=== PATIENT | male | born 1975 | race American Indian/Alaskan Native ===

== ENCOUNTER 2017-09-07 12:25 | Emergency (ER) | payer SELFPAY ==
[2017-09-07 13:23] VITALS: BP 130/82
--- NOTE | 2017-09-07 14:48 | XRay Report ---
FINAL REPORT PROCEDURE: XR HAND 3+V RT TECHNIQUE: RIGHT finger radiographs, including AP, lateral, and oblique views. HISTORY: right finger injury 1ST DIGIT COMPARISON: No prior studies are available for comparison. FINDINGS: Fracture (s) and/or Dislocation(s): None . Alignment: Normal. Joint space(s): Normal . Soft tissues: Normal . Bone mineralization: Normal . Foreign bodies: None . IMPRESSION: Normal Examination
--- NOTE | 2017-09-07 14:52 | Emergency Department Report ---
Upper Extremity - HPI Chief Complaint: Extremity Injury, Upper Stated Complaint: RIGHT INDEX FINGER INJURY Time Seen by Provider: 09/07/17 14:40 Upper Extremity: Right Index Finger Occurred When: >5 Days (1 month ago) Mechanism: Hyperextension Severity: moderate Symptoms: Yes Pain with Movement, Yes Limited Range of Movement, Yes Swelling, No Deformity, No Numbness, No Weakness, No Bruising/Ecchymosis, No Laceration or Abrasion Other History: This is a 41 y.o. male that presents with pain, swelling, and redness to right index finger for 1 month. Patient reports lifting a granite counter top at work and finger extended back. Spouse reports putting ice on it and wrapping daily. The swelling was worse when it initially happened but has improved over the past 2 weeks. The patient reports being able to hold objects but it is very painful when finger is flexed and he has limited ROM. He took ibuprofen 800 mg once, which helped a lot with symptoms. Denies numbness, tingling, and deformity. ED Review of Systems ROS: Stated complaint: RIGHT INDEX FINGER INJURY Other details as noted in HPI Constitutional: denies: chills, fever Respiratory: denies: cough, shortness of breath, wheezing Cardiovascular: denies: chest pain, palpitations Gastrointestinal: denies: abdominal pain, nausea, vomiting, diarrhea Musculoskeletal: joint swelling (over right index joints), arthralgia (right index finger). denies: back pain Skin: denies: rash, lesions, change in hair/nails, pruritus Neurological: denies: headache, weakness, numbness, paresthesias, confusion, abnormal gait, vertigo Psychiatric: denies: anxiety, depression ED Past Medical Hx - Past Medical History Previous Medical History?: No - Surgical History Past Surgical History?: Yes Additional Surgical History: right knee. splenectomy - Social History Smoking Status: Never Smoker Substance Use Type: Alcohol - Medications Home Medications: Home Medications Medication Instructions Recorded Confirmed Last Taken Type Ibuprofen 800 mg PO Q6H PRN #20 tablet 09/07/17 Unknown Rx Upper Extremity Exam - Exam General: Vital signs noted. No distress. Alert and acting appropriately. Head and Torso: No HEENT Abnormality, No Neck Tenderness, No Chest/Lungs Abnormality, No Abdominal Tenderness, No Back Tenderness Shoulder Exam: Yes Normal Range of Motion in Shoulder, No Shoulder Tenderness, No Clavicle Tenderness, No Shoulder Deformity, No AC Joint Tenderness Arm Exam: No Arm/Humerus Tenderness, No Arm Deformity Elbow: No Elbow Tenderness, No Normal Range of Motion in Elbow, No Elbow Deformity Forearm: No Forearm Tenderness, No Forearm Deformity, No Pain with Pronation, No Pain with Supination Wrist: Yes Normal ROM in Wrist, No Wrist Tenderness, No Wrist Deformity, No Snuffbox Tenderness, No Pain with Axial Thumb Compression Hand: Yes Digit Tenderness (tenderness on palpation of ), No Hand Tenderness, No Hand Deformity, No Normal ROM in Digit(s) (limited ROM, 40 degrees passive of DIP joint of right 2nd phalanx, erythematous over joint, swelling), No Digit( s) Deformity, No Tendon Dysfunction CMS Exam: Yes Normal Distal Pulses, No Broken Skin, No Normal Capillary Refill, No Normal Distal Sensation ED Course Vital Signs 09/07/17 13:19 Temperature 99.2 F Pulse Rate 79 Respiratory 18 Rate Blood Pressure 130/82 O2 Sat by Pulse 97 Oximetry ED Medical Decision Making - Radiology Data Radiology results: report reviewed XR right hand: Normal Examination - Medical Decision Making This is a 41 y.o. male that presents with pain, swelling, and redness to right index finger for 1 month. Patient examined by me and stable. No distress noted. Vitals stable. Obtained XR of right hand: Normal Examination. Review exam. Start ibuprofen 800 mg po q6h PRN for pain. F/U with ortho or PCP in 2-3 days for MRI to r/o possible tear. Discussed plan with patient and he agreed with plan to treat outpatient. Discharged home. Critical care attestation.: If time is entered above; I have spent that time in minutes in the direct care of this critically ill patient, excluding procedure time. ED Disposition Clinical Impression: Muscle strain of finger of right hand, Pain in finger of right hand Disposition: DC- TO HOME OR SELFCARE Is pt being admited?: No Does the pt Need Aspirin: No Condition: Stable Instructions: Muscle Strain (ED) Additional Instructions: Rest Use ice or heat on affected area for 20 minutes and off for 2 hours. Take pain medication as needed for pain. Follow up with Primary Care Provider or Ortho in 2-3 days. Prescriptions: Ibuprofen 800 mg PO Q6H PRN #20 tablet PRN Reason: Pain Referrals: PRIMARY CARE, [Primary Care Provider] - 3-5 Days [facility] [Outside] - 3-5 Days [facility] [Outside] - 3-[address] MD [Staff Physician] - 3-5 Days Time of Disposition: 15:36 Print Language: TAJIK
== END 2017-09-07 15:43 | disposition home or self-care (01) ==
LOC: ED 12:25
DX: S66.911A Strain of unspecified muscle, fascia and tendon at wrist and hand level, right hand, initial encounter (principal); Z90.81 Acquired absence of spleen; X50.0XXA Overexertion from strenuous movement or load, initial encounter; Y93.89 Activity, other specified; Y92.89 Other specified places as the place of occurrence of the external cause; Y99.8 Other external cause status
CPT/HCPCS: 99283

== ENCOUNTER 2019-05-20 03:36 | Emergency (ER) | payer BC ==
[2019-05-20] MEDS ORDERED: ASPIRIN 325 MG TAB PO ONE (04:47)
[2019-05-20 05:12] LABS: Basophils # (Auto) 0.1 K/mm3 (0.0-0.1); Basophils % (Auto) 1.1 % (0.0-1.8); Eosinophils # (Auto) 0.1 K/mm3 (0.0-0.4); Eosinophils % (Auto) 1.9 % (0.0-4.3); Hematocrit 40.4 % (35.5-45.6); Hemoglobin 13.5 gm/dl (11.8-15.2); Lymphocytes # (Auto) 2.8 K/mm3 (1.2-5.4); Lymphocytes % (Auto) 36.2 % (13.4-35.0); Mean Corpuscular HGB Conc 33 % (32-34); Mean Corpuscular Volume 93 fl (84-94); Monocytes # (Auto) 0.7 K/mm3 (0.0-0.8); Monocytes % (Auto) 8.8 % (0.0-7.3); Platelet Count 256 K/mm3 (140-440); Red Blood Count 4.33 M/mm3 (3.65-5.03); Red Cell Distribution Width 14.2 % (13.2-15.2)
--- NOTE | 2019-05-20 05:27 | XRay Report ---
CHEST 1 VIEW INDICATION / CLINICAL INFORMATION: Chest Pain. COMPARISON: None available. FINDINGS: SUPPORT DEVICES: None. HEART / MEDIASTINUM: No significant abnormality. LUNGS / PLEURA: No significant pulmonary or pleural abnormality. No pneumothorax. ADDITIONAL FINDINGS: No significant additional findings. IMPRESSION: 1. No acute findings. Signer Name: Rafael Nieves MD Signed: 05/20/2019 5:23 AM Workstation Name: [id number]
[2019-05-20 05:30] LABS: BUN/Creatinine Ratio 14; Blood Urea Nitrogen 14 mg/dL (9-20); Calcium 9.4 mg/dL (8.4-10.2); Hemolysis Index 4
--- NOTE | 2019-05-20 06:39 | Emergency Department Report ---
ED Chest Pain HPI - General Chief Complaint: Chest Pain Stated Complaint: LIGHTHEADED PASSED OUT Time Seen by Provider: 05/20/19 06:01 Source: patient Mode of arrival: Ambulatory Limitations: No Limitations - History of Present Illness Initial Comments: 43-year-old male presents to the emergency department with complaint of having some lightheadedness and possibly a short episode of passing out while sitting in a landry chair yesterday at about 3 PM. At this time the patient says that he feels much better and is asymptomatic. The patient admits to not eating much food or drinking much fluids on Saturday and Saturday as he says that he was sleeping a lot. While he was getting his haircut he suddenly felt lightheaded and dizzy, hot, and then thinks that he passed out for a few seconds. He was told that he passed out by the landry who then called EMS. He was seen by EMS but declined transport to the emergency department at that time. Patient has no past medical history. He denies any tobacco or illicit drug use. He came in early this morning for evaluation for this lightheadedness and syncopal episode. Patient denies any chest pain or shortness of breath. He says that there have been some episodes where he has short, sharp chest pains on and off for "some time." Severity scale (0 -10): 0 - Related Data Previous Rx's Medication Instructions Recorded Last Taken Type Ibuprofen [Ibuprofen 800] 800 mg PO Q6H PRN #20 tablet 09/07/17 Unknown Rx Allergies Allergy/AdvReac Type Severity Reaction Status Date / Time No Known Allergies Allergy Verified 09/07/17 13:19 Heart Score - HEART Score History: Slightly suspicious EKG: Normal Age: 45-65 Risk factors: No known risk factors Troponin: < normal limit HEART Score: 1 - Critical Actions Critical Actions: 0-3 pts:0.9-1.7%risk of adverse cardiac event.Candidate for discharge ED Review of Systems ROS: Stated complaint: LIGHTHEADED PASSED OUT Other details as noted in HPI Comment: All other systems reviewed and negative Constitutional: denies: chills, fever Eyes: denies: eye pain, vision change ENT: denies: ear pain, throat pain Respiratory: denies: cough, shortness of breath Cardiovascular: syncope. denies: chest pain Gastrointestinal: denies: abdominal pain, vomiting Genitourinary: denies: dysuria, discharge Musculoskeletal: denies: back pain, arthralgia Skin: denies: rash, lesions Neurological: other (lightheaded). denies: headache ED Past Medical Hx - Past Medical History Previous Medical History?: No - Surgical History Past Surgical History?: Yes Additional Surgical History: right knee. splenectomy - Social History Smoking Status: Former Smoker Substance Use Type: None - Medications Home Medications: Home Medications Medication Instructions Recorded Confirmed Last Taken Type Ibuprofen [Ibuprofen 800] 800 mg PO Q6H PRN #20 tablet 09/07/17 Unknown Rx ED Physical Exam - General Limitations: No Limitations - Other Other exam information: GENERAL: The patient is well-developed well-nourished. HENT: Normocephalic. Atraumatic. Patient has moist mucous membranes. EYES: Extraocular motions are intact. Pupils equal reactive to light bilaterally. No nystagmus. NECK: Supple. Trachea is midline. CHEST/LUNGS: Clear to auscultation. There is no respiratory distress noted. HEART/CARDIOVASCULAR: Regular. There is no tachycardia. There is no murmur. ABDOMEN: Abdomen is soft, nontender. Patient has normal bowel sounds. There is no abdominal distention. SKIN: Skin is warm and dry. NEURO: The patient is awake, alert, and oriented. The patient is cooperative. The patient has no focal neurologic deficits. Normal speech. Cranial nerves II through XII grossly intact. No pronator drift. No dysmetria. No facial asymmetry. MUSCULOSKELETAL: There is no tenderness or deformity. There is no limitation range of motion. There is no evidence of acute injury. ED Course Vital Signs 05/20/19 05/20/19 03:42 06:44 Temperature 98.2 F Pulse Rate 90 81 Respiratory 18 14 Rate Blood Pressure 143/83 Blood Pressure 143/83 120/79 [Left] O2 Sat by Pulse 100 98 Oximetry DEBBI score - Debbi Score Age > 65: (0) No Aspirin use within the Past 7 Days: (0) No 3 or more CAD Risk Factors: (0) No 2 or more Angina events in past 24 hrs: (0) No Known CAD with more than 50% Stenosis: (0) No Elevated Cardiac Markers: (0) No ST Deviation Greater than 0.5mm: (0) No DEBBI Score: 0 ED Medical Decision Making - Lab Data Result diagrams: 05/20/19 04:52 05/20/19 04:52 - EKG Data -: EKG Interpreted by Me EKG shows normal: sinus rhythm, axis, intervals, QRS complexes (LAFB), ST-T waves Rate: normal - EKG Data When compared to previous EKG there are: previous EKG unavailable Interpretation: other (Sinus, LAFB, No STEMI) - Radiology Data Radiology results: image reviewed interpreted by me: Chest x-ray does not show any acute process. There are no pleural effusions, obvious pneumonia and there is no pneumothorax. - Medical Decision Making This patient presented with the complaint of some lightheadedness and/or dizziness that may have led to a brief syncopal episode. On examination he does not have any focal, motor or sensory deficits and his cranial nerves are intact. EKG did not show any signs of ST elevation MA or significant dysrhythmia. His labs have been unremarkable including CBC, metabolic panel and troponin. Vital signs of been stable throughout his ED course. The patient is currently asymptomatic. For all these reasons the patient appears safe for discharge home at this time. He has been instructed to follow-up with his primary care physician and to return to the emergency department immediately with any worsening of his symptoms, further episodes of passing out, or with any acute distress. There was some mention of chest pain through triage but the patient denies having any chest pain around the time of his syncopal episode or since, but he does have some intermittent transient short episodes of chest pain that been going on for "some time." For this reason, the patient was given a referral for cardiology for outpatient follow-up, but once again has been instructed to return with any return of his chest pain. The patient understands and agrees to the plan. - Differential Diagnosis vasovagal, orthostatic hypotension, dehydration, dysrhythmia Critical Care Time: No Critical care attestation.: If time is entered above; I have spent that time in minutes in the direct care of this critically ill patient, excluding procedure time. ED Disposition Clinical Impression: Intermittent chest pain Syncope Qualifiers: Syncope type: unspecified Qualified Code(s): R55 - Syncope and collapse Disposition: DC-01 TO HOME OR SELFCARE Is pt being admited?: No Condition: Stable Instructions: Chest Pain (ED), Syncope (ED) Additional Instructions: Please follow-up with your primary care physician in the next few days. I'm giving you a referral for a local water pump installer, Dr. Gray, to follow up regarding your intermittent chest pains. Please return to the emergency department immediately with any return of your chest pain, any further episodes of passing out, or with any acute distress. Referrals: PRIMARY CARE, [Primary Care Provider] - 2-3 Days CELESTE NEUMANN MD [Staff Physician] - 2-3 Days Forms: Work/School Release Form(ED) Time of Disposition: 06:39
[2019-05-20 06:49] VITALS: BP 120/79
== END 2019-05-20 06:49 | disposition home or self-care (01) ==
LOC: ED 03:36
DX: R55 Syncope and collapse (principal); R07.89 Other chest pain; Z87.891 Personal history of nicotine dependence; Z90.89 Acquired absence of other organs
CPT/HCPCS: 36415; 71045; 80048; 84484; 85025; 93005; 93010

== ENCOUNTER 2020-08-17 07:40 | Emergency (ER) | payer BC, OTHER ==
--- NOTE | 2020-08-17 08:17 | Emergency Department Report ---
Blank Doc - Documentation Documentation: 44-year-old male that presents with several syncopal episodes. 1- This initial assessment/diagnostic orders/clinical plan/ treatment(s) is/are subject to change based on pt's health status, clinical progression and re- assessment by fellow clinical providers in the ED. Further treatment and workup at subsequent clinical provers discretion. Patient/guardians urged not to elope from ED as their condition may be serious if not clinically assessed and managed. 2-labs 3-EKG 4-CT head
--- NOTE | 2020-08-17 08:56 | Cat Scan Report ---
CT BRAIN: 08/17/2020 INDICATION / CLINICAL INFORMATION: Syncope. COMPARISON: None available. FINDINGS: BRAIN/INTRACRANIAL STRUCTURES: Unenhanced CT images of the brain demonstrate no evidence of acute int racranial abnormality. Ventricles and sulci are normal in size and shape. There is no CT evidence of acute large vessel territory ischemic injury, hemorrhage, or mass. There a re no abnormal extra-axial fluid collections. EXTRACRANIAL STRUCTURES: Unremarkable. IMPRESSION: No acute abnormality. All CT scans at this location are performed using dose reduction to ALARA by means of automated expos ure control. Signer Name: Luis Boykin MD Signed: 08/17/2020 8:52 AM Workstation Name: [id number]
[2020-08-17 09:01] LABS: Basophils # (Auto) 0.1 K/mm3 (0.0-0.1); Eosinophils # (Auto) 0.1 K/mm3 (0.0-0.4); Eosinophils % (Auto) 1.7 % (0.0-4.3); Hematocrit 39.7 % (35.5-45.6); Hemoglobin 13.7 gm/dl (11.8-15.2); Lymphocytes % (Auto) 34.3 % (13.4-35.0); Mean Corpuscular HGB Conc 35 % (32-34); Mean Corpuscular Volume 96 fl (84-94); Monocytes # (Auto) 0.6 K/mm3 (0.0-0.8); Platelet Count 216 K/mm3 (140-440); Red Blood Count 4.12 M/mm3 (3.65-5.03); Red Cell Distribution Width 13.9 % (13.2-15.2)
[2020-08-17 09:10] LABS: INR 1.04 (0.87-1.13)
[2020-08-17 09:11] LABS: Partial Thromboplastin Time 33.2 Sec. (24.2-36.6)
[2020-08-17 09:48] LABS: Alanine Aminotransferase 8 units/L (7-56); Albumin 4.3 g/dL (3.9-5); BUN/Creatinine Ratio 10; Blood Urea Nitrogen 10 mg/dL (9-20); Calcium 8.9 mg/dL (8.4-10.2); Hemolysis Index 0
[2020-08-17 09:52] VITALS: BP 128/84
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
--- NOTE | 2020-08-17 10:19 | XRay Report ---
CHEST 1 VIEW INDICATION / CLINICAL INFORMATION: syncope. COMPARISON: 05/20/2019 FINDINGS: SUPPORT DEVICES: None. HEART / MEDIASTINUM: No significant abnormality. LUNGS / PLEURA: No significant pulmonary or pleural abnormality. No pneumothorax. ADDITIONAL FINDINGS: Old healed left for fractures IMPRESSION: Old healed left rib fractures. No acute disease or interval change from 05/20/2019 Signer Name: Thai Chavez MD FACOswaldo Signed: 08/17/2020 10:15 AM Workstation Name: [email or web address]
--- NOTE | 2020-08-17 10:20 | XRay Report ---
LEFT SHOULDER 3 VIEWS INDICATION / CLINICAL INFORMATION: pain. COMPARISON: None available. FINDINGS: No significant skeletal abnormality Signer Name: Thai Chavez MD FACR Signed: 08/17/2020 10:15 AM Workstation Name: [id number]
== END 2020-08-17 10:59 | disposition home or self-care (01) ==
LOC: ED 07:40
DX: S40.012A Contusion of left shoulder, initial encounter (principal); R55 Syncope and collapse; Z98.890 Other specified postprocedural states; Z79.899 Other long term (current) drug therapy; V49.69XA Unspecified car occupant injured in collision with other motor vehicles in traffic accident, initial encounter; Y93.89 Activity, other specified; Y92.488 Other paved roadways as the place of occurrence of the external cause; Y99.8 Other external cause status
CPT/HCPCS: 36415; 70450; 71045; 80053; 82962; 83735; 84484; 85025; 85379; 85610; 85730; 93005

== ENCOUNTER 2020-10-01 10:57 | Emergency (ER) | payer OTHER ==
[2020-10-01 11:57] VITALS: BP 137/88
--- NOTE | 2020-10-01 12:13 | Event Note ---
ED Screening Note Date of service: 10/01/20 Time: 11:56 ED Screening Note: Patient complains of syncopal episode last night lasting around 10 minutes Denies any preceding symptoms States mild dizziness No numbness/tingling/weakness in his limbs, headache, or past medical history per patient Patient states syncopal episodes have been recurrent for many months This initial assessment/diagnostic orders/clinical plan/treatment(s) is/are subject to change based on patients health status, clinical progression and re- assessment by fellow clinical providers in the ED. Further treatment and workup at subsequent clinical providers discretion. Patient/guardian urged not to elope from the ED as their condition may be serious if not clinically assessed and managed. Initial orders include: Labs EKG CT head
[2020-10-01 13:08] LABS: Basophils # (Auto) 0.1 K/mm3 (0.0-0.1); Basophils % (Auto) 0.5 % (0.0-1.8); Eosinophils % (Auto) 0.4 % (0.0-4.3); Hematocrit 40.2 % (35.5-45.6); Hemoglobin 13.9 gm/dl (11.8-15.2); Lymphocytes # (Auto) 1.7 K/mm3 (1.2-5.4); Mean Corpuscular HGB Conc 35 % (32-34); Mean Corpuscular Volume 97 fl (84-94); Monocytes % (Auto) 8.7 % (0.0-7.3); Platelet Count 240 K/mm3 (140-440); Red Blood Count 4.14 M/mm3 (3.65-5.03); Red Cell Distribution Width 13.8 % (13.2-15.2)
[2020-10-01 13:21] LABS: Alanine Aminotransferase 9 units/L (7-56); Albumin 4.6 g/dL (3.9-5); BUN/Creatinine Ratio 8; Blood Urea Nitrogen 7 mg/dL (9-20); Calcium 9.4 mg/dL (8.4-10.2); Hemolysis Index 8
--- NOTE | 2020-10-03 13:38 | Electrocardiograph Report ---
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
== END 2020-10-01 14:35 ==
LOC: ED 10:57
DX: R55 Syncope and collapse (principal); Z53.21 Procedure and treatment not carried out due to patient leaving prior to being seen by health care provider
CPT/HCPCS: 36415; 80053; 84484; 85025; 93005

== ENCOUNTER 2021-08-08 12:32 | Emergency (ER) | payer SELFPAY | END 2021-08-08 18:08 | disposition left against medical advice (07) | LOC: ED 12:32 | DX: M25.511 Pain in right shoulder (principal); M25.512 Pain in left shoulder; Z53.21 Procedure and treatment not carried out due to patient leaving prior to being seen by health care provider ==

== ENCOUNTER 2021-09-30 04:25 | Emergency (ER) | payer SELFPAY | END 2021-09-30 11:19 | disposition left against medical advice (07) | LOC: ED 04:25 | DX: M79.601 Pain in right arm (principal); Z53.21 Procedure and treatment not carried out due to patient leaving prior to being seen by health care provider ==